=== PATIENT | male | born 1950 | race Caucasian/White ===

== ENCOUNTER 2019-04-29 10:53 | Emergency (ER) | payer MEDICARE ==
[~2019-04-29] VITALS: Ht 162.6 cm; Wt 77.1 kg
[~2019-04-29 10:53] MED LIST: DUTA0.5C PO; LATA2.5D7 EACHEYE; METO25TA6 PO; PANT40TA4 PO; RANI300T4 PO; SILO4CAP PO
--- NOTE | 2019-04-29 11:02 | NUR ---
CAME IN FOR "HEART PALPITATION" STARTED LAST NIGHT WAKING HIM. 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 TO ER BED 9, HOOKED TO FLOOR COVERING CONTRACTOR, CECE JEREZ, CHANGED TO HOSP GOWN, AWAITING MD ROCHA.
--- NOTE | 2019-04-29 11:04 | NUR ---
DR SHIELDS AT BEDSIDE
[2019-04-29 11:28] LABS: BASOPHILS % (AUTO) 0.7 % (0.0-2.0); EOSINOPHILS % (AUTO) 0.3 % (0.0-6.0); HEMATOCRIT 46 % (39-51); HEMOGLOBIN 15.3 g/dL (13.5-17.5); LYMPHOCYTES # (AUTO) 1.2 /CMM (0.8-4.8); MEAN CORPUSCULAR HGB CONC 33 g/dl (31.0-36.0); MEAN CORPUSCULAR VOLUME 92 fL (80-96); MONOCYTES # (AUTO) 0.4 /CMM (0.1-1.30); MONOCYTES % (AUTO) 9.3 % (2.0-12.0); NEUTROPHILS # (AUTO) 2.2 /CMM (1.8-8.9); NEUTROPHILS % (AUTO) 57.7 % (43.0-81.0); PLATELET COUNT (AUTO) 196 /CMM (150-450); RED BLOOD CELL COUNT(AUTO) 4.96 MIL/uL (4.5-6.0); WHITE BLOOD COUNT (AUTO) 3.8 K/uL (4.3-11.0)
[2019-04-29 11:31] LABS: CALCIUM, SERUM 9.4 mg/dL (8.5-10.1); CARBON DIOXIDE 26 mmol/L (21-32); CHLORIDE 105 mmol/L (98-107); CREATININE 0.9 mg/dL (0.6-1.3); GLUCOSE 118 mg/dL (74-106); POTASSIUM 3.7 mmol/L (3.5-5.1); SODIUM SERUM 139 mmol/L (136-145); UREA NITROGEN, BLOOD 13 mg/dL (7-18)
[2019-04-29] MEDS ORDERED: FEXO1TAB11 PO (12:14)
--- NOTE | 2019-04-29 13:45 | NUR ---
IV removed. Catheter intact and site benign. Pressure and 4x4 applied to site. No bleeding noted.Patient discharged to home in stable condition. Written and verbal after care instructions given. Patient verbalizes understanding of instruction.
[2019-04-29 13:47] VITALS: BP 118/75
== END 2019-04-29 13:47 | disposition home or self-care (01) ==
LOC: ER 10:55
DX: R00.2 Palpitations (principal); R07.89 Other chest pain; I10 Essential (primary) hypertension; Z98.890 Other specified postprocedural states; Z88.2 Allergy status to sulfonamides; Z88.1 Allergy status to other antibiotic agents; Z88.5 Allergy status to narcotic agent; Z91.040 Latex allergy status; Z79.899 Other long term (current) drug therapy
CPT/HCPCS: 36415; 71045-TC; 80048-TC; 84484-TC; 85025-TC; 85730-TC